=== PATIENT | female | born 1965 | race Caucasian/White ===

== ENCOUNTER → 2016-12-18 | Day surgery (SDC) | payer BC, OTHER ==
[2016-12-10 08:47] VITALS: Ht 162.6 cm; Wt 55.5 kg
[~2016-12-18] VITALS: Ht 162.6 cm; Wt 55.5 kg
[~2016-12-18] MED LIST: CLX/20 PO
[2016-12-18 14:40] VITALS: BP 110/80; PULSE 73; TEMP 36.7; O2SAT 97
--- NOTE | 2016-12-28 12:40 | OPERATIVE REPORT ---
DATE OF OPERATION: 12/28/2016 PROCEDURE: Hydrogen breath test. INDICATIONS: The patient is a 51-year-old with symptoms of gas and bloating. DESCRIPTION OF PROCEDURE: The patient was brought to the endoscopy center where she was given a dose of 25 grams of lactose. Baseline hydrogen and CO2 levels were performed and then every 60 minutes thereafter for 3 hours. The patient's baseline hydrogen level was 0, CO2 level was 2.3. The highest hydrogen level went during the procedure was to 8, which is not a significant elevation. She had no symptoms during the procedure. CO2 levels remained between 2.3 and 4.5, during the procedure. IMPRESSION: The patient is negative for lactose intolerance. The patient will follow up again as needed. I attest to the content of the Intraoperative Record and any orders documented therein. Any exceptio ns are noted below.
== END | disposition home or self-care (01) ==
LOC: C.GI 10:46
PROVIDERS: ATTEND Internal Medicine Gastroenterology
DX: R10.13 Epigastric pain (principal); R14.3 Flatulence; R14.0 Abdominal distension (gaseous); I49.9 Cardiac arrhythmia, unspecified

== ENCOUNTER → 2016-12-18 | Outpatient (CLI) | payer OTHER ==
--- NOTE | 2016-12-18 11:28 | DIAGNOSTIC IMAGING REPORT ---
ULTRASOUND ABDOMEN COMPLETE CLINICAL HISTORY: Epigastric abdominal pain. Bloating. COMPARISON STUDY: No priors. TECHNIQUE: Real-time, grayscale, and color flow sonography of the abdomen was performed. Images are reviewed in the transverse and longitudinal planes. FINDINGS: Liver: The liver is normal in size and echotexture. There is no intrahepatic biliary ductal dilatation. The main portal vein is patent. Gallbladder: The gallbladder is normal in appearance. No gallstones are identified. There is no gallbladder wall thickening or pericholecystic fluid. A sonographic [place]'s sign is reportedly absent. The common bile duct measures up to 0.5 cm in diameter. Pancreas: Visualized portions of the pancreatic head and body are normal in appearance. The splenic vein is patent. Spleen: The spleen is normal in size and echotexture, measuring 10.3 cm in length. Kidneys: The kidneys are normal in size and echotexture. There is no hydronephrosis. The right kidney measures 9.6 cm in length and the left kidney measures an 0.0 cm in length. No shadowing calculi are identified. Abdominal vasculature: Visualized portions of the abdominal aorta and IVC are normal in appearance. Ascites: None. IMPRESSION: Unremarkable sonographic evaluation of the abdomen. Electronically signed by: Tyler Hardy M.D. 12/18/2016 11:27 AM Dictated Date/Time: 12/18/2016 11:26 AM
== END | disposition home or self-care (01) ==
LOC: C.ULTR 10:42
PROVIDERS: ATTEND Internal Medicine Gastroenterology
DX: R10.13 Epigastric pain (principal); R14.3 Flatulence; I49.9 Cardiac arrhythmia, unspecified